=== PATIENT | female | born 1930 | race Caucasian/White ===

== ENCOUNTER 2017-01-28 23:13 | Emergency (ER) | payer MEDICARE, OTHER ==
[~2017-01-28 23:13] MED LIST: ALLEGRA ALLERG180 MG PO; ASPIRIN CHEWABL81 MG PO; CALCIUM600 MG PO; CEFDINIR300 MG PO; COZAAR 25MG TAB25 MG PO; COZAAR50 MG PO; LIPITOR10 MG PO; MEGA BIOTIN10000 MCG PO; MULTIPLE VITAM1 EAC1 PO; NEURONTIN100 MG PO; OSTEO BI-FLEX1 EAC1 PO; PRILOSEC10 MG PO; SINGULAIR10 MG PO; SUPER B COMPLE150 MG PO; SYNTHROID50 MCG PO; TOLTERODINE TART1 MG PO; WELLBUTRIN100 MG PO; ZITHROMAX250 MG PO
[2017-01-29 00:33] LABS: BASOPHIL 0.8 % (0-2); EOSINOPHIL 1.4 % (0-7); HCT 29.2 % (37.0-47.0); HGB 9.8 g/dl (12.5-16.0); LYMPHOCYTE 23.4 % (15-48); MCH 30.6 pg (25.0-31.0); MCHC 33.6 g/dL (32.0-36.0); MCV 91.3 fL (78.0-100.0); MONOCYTE 11.6 % (0-12); MPV 9.4 fL (6.0-9.5); NEUTROPHIL 62.8 % (41-80); PLT 197 K/uL (150-400); RDW 14.9 % (11.5-14.0); WBC 6.5 K/uL (4.0-10.5)
[2017-01-29 00:43] LABS: INR 0.96 (0.9-1.2); PROTHROMBIN TIME 12.4 SECONDS (11.7-14.0); PTT 24.9 SECONDS (23.2-31.4)
[2017-01-29 01:01] LABS: ALBUMIN 3.7 g/dL (3.4-4.8); BILIRUBIN - TOTAL 0.3 mg/dL (0.1-1.0); CREATININE 1.1 mg/dL (0.5-1.0); POTASSIUM 3.9 mmol/L (3.5-5.1); TOTAL PROTEIN 5.7 g/dL (6.4-8.3)
[2017-01-29 02:32] LABS: BILIRUBIN NEGATIVE (NEGATIVE); BLOOD NEGATIVE Ery/uL (NEGATIVE); CLARITY CLEAR (CLEAR); COLOR YELLOW (YELLOW); GLUCOSE (U) NORMAL (NORMAL); KETONE (U) NEGATIVE (NEGATIVE); LEUKOCYTES 1+ Leu/uL (NEGATIVE); NITRITE NEGATIVE (NEGATIVE); PROTEIN NEGATIVE (NEGATIVE); SPECIFIC GRAVITY <=1.005 (1.001-1.030); UROBILINOGEN 0.2 mg/dL (0.2-1.0)
[2017-01-29 02:39] LABS: BACTERIA TRACE
== END 2017-01-29 03:09 | disposition home or self-care (01) ==
LOC: FER 23:13
PROVIDERS: Emergency Medicine Emergency Medical Services
DX: S82.301A Unspecified fracture of lower end of right tibia, initial encounter for closed fracture (principal); R26.2 Difficulty in walking, not elsewhere classified; R82.90 Unspecified abnormal findings in urine; I10 Essential (primary) hypertension; E03.9 Hypothyroidism, unspecified; E78.5 Hyperlipidemia, unspecified; Z88.2 Allergy status to sulfonamides; Z88.5 Allergy status to narcotic agent; Z88.6 Allergy status to analgesic agent; W19.XXXA Unspecified fall, initial encounter; Y92.009 Unspecified place in unspecified non-institutional (private) residence as the place of occurrence of the external cause
CPT/HCPCS: 36415; 71010; 72170; 73502; 73552; 73564; 73700; 80053; 81001; 85025; 85610; 85730; 86403; 87076; 87077; 87088; 93005; 96372; J1170; J1885; J2405

== ENCOUNTER 2017-02-03 13:11 | Emergency (ER) | payer MEDICARE, OTHER ==
[2017-02-03 17:50] LABS: BASOPHIL 0.7 % (0-2); EOSINOPHIL 2.2 % (0-7); HCT 32.6 % (37.0-47.0); HGB 10.9 g/dl (12.5-16.0); LYMPHOCYTE 22.7 % (15-48); MCH 30.5 pg (25.0-31.0); MCHC 33.4 g/dL (32.0-36.0); MCV 91.3 fL (78.0-100.0); MONOCYTE 11.2 % (0-12); MPV 9.4 fL (6.0-9.5); NEUTROPHIL 63.2 % (41-80); PLT 252 K/uL (150-400); RBC 3.57 M/uL (4.20-5.40); RDW 14.7 % (11.5-14.0); WBC 7.6 K/uL (4.0-10.5)
[2017-02-03 18:01] LABS: POTASSIUM 3.8 mmol/L (3.5-5.1)
== END 2017-02-03 19:00 | disposition home or self-care (01) ==
LOC: FER 13:11
PROVIDERS: Internal Medicine
DX: M25.561 Pain in right knee (principal); Z96.651 Presence of right artificial knee joint
CPT/HCPCS: 36415; 73564; 80048; 85025; 96372; J1170

== ENCOUNTER 2017-04-17 13:27 | Emergency (ER) | payer MEDICARE, OTHER ==
[2017-04-17 15:20] LABS: BASOPHIL 0.6 % (0-2); EOSINOPHIL 2.7 % (0-7); HCT 33.1 % (37.0-47.0); HGB 11.3 g/dl (12.5-16.0); LYMPHOCYTE 23.2 % (15-48); MCH 30.4 pg (25.0-31.0); MCHC 34.1 g/dL (32.0-36.0); MONOCYTE 8.6 % (0-12); NEUTROPHIL 64.9 % (41-80); PLT 284 K/uL (150-400); RBC 3.72 M/uL (4.20-5.40); RDW 13.7 % (11.5-14.0); WBC 8.3 K/uL (4.0-10.5)
[2017-04-17 15:21] LABS: BILIRUBIN NEGATIVE (NEGATIVE); BLOOD NEGATIVE Ery/uL (NEGATIVE); CLARITY CLEAR (CLEAR); COLOR YELLOW (YELLOW); GLUCOSE (U) NORMAL (NORMAL); KETONE (U) TRACE mg/dL (NEGATIVE); LEUKOCYTES 1+ Leu/uL (NEGATIVE); NITRITE NEGATIVE (NEGATIVE); PROTEIN NEGATIVE (NEGATIVE); UROBILINOGEN 0.2 mg/dL (0.2-1.0); pH 7.5 (5.0-9.0)
[2017-04-17 15:29] LABS: BACTERIA TRACE
[2017-04-17 15:35] LABS: ALBUMIN 3.8 g/dL (3.4-4.8); BILIRUBIN - TOTAL 0.4 mg/dL (0.1-1.0); GLOBULIN (CALCULATION) 2.5 g/dL (2.2-4.2); TOTAL PROTEIN 6.3 g/dL (6.4-8.3)
== END 2017-04-17 18:45 | disposition home or self-care (01) ==
LOC: FER 13:27
PROVIDERS: Emergency Medicine
DX: R10.9 Unspecified abdominal pain (principal); I10 Essential (primary) hypertension; K21.9 Gastro-esophageal reflux disease without esophagitis; Z79.899 Other long term (current) drug therapy
CPT/HCPCS: 36415; 70450; 80053; 81001; 82150; 83690; 85025

== ENCOUNTER 2017-05-13 18:56 | Inpatient (IN) | payer MEDICARE, OTHER ==
[~2017-05-13] VITALS: Ht 163 cm; Wt 79.4 kg
[2017-05-13 19:28] LABS: BASOPHIL 0.3 % (0-2); HCT 32.1 % (37.0-47.0); HGB 10.9 g/dl (12.5-16.0); LYMPHOCYTE 26.8 % (15-48); MCH 29.6 pg (25.0-31.0); MCV 87.2 fL (78.0-100.0); MONOCYTE 10.2 % (0-12); MPV 9.5 fL (6.0-9.5); NEUTROPHIL 60.7 % (41-80); PLT 282 K/uL (150-400); RBC 3.68 M/uL (4.20-5.40); RDW 13.4 % (11.5-14.0)
[2017-05-13 19:33] LABS: INR 1.02 (0.9-1.2); PTT 30.3 SECONDS (23.2-31.4)
[2017-05-13 19:36] LABS: ALBUMIN 3.9 g/dL (3.4-4.8); BILIRUBIN - TOTAL 0.2 mg/dL (0.1-1.0); GLOBULIN (CALCULATION) 1.8 g/dL (2.2-4.2); POTASSIUM 4.1 mmol/L (3.5-5.1); TOTAL PROTEIN 5.7 g/dL (6.4-8.3)
[2017-05-13 20:19] LABS: BILIRUBIN NEGATIVE (NEGATIVE); BLOOD NEGATIVE Ery/uL (NEGATIVE); CLARITY CLEAR (CLEAR); COLOR YELLOW (YELLOW); GLUCOSE (U) NORMAL (NORMAL); KETONE (U) NEGATIVE (NEGATIVE); LEUKOCYTES NEGATIVE Leu/uL (NEGATIVE); NITRITE NEGATIVE (NEGATIVE); PROTEIN NEGATIVE (NEGATIVE); UROBILINOGEN 0.2 mg/dL (0.2-1.0)
[2017-05-14 01:55] LABS: TSH (THYROID STIM HORMONE) 2.7 uIU/mL (0.270-4.200)
[2017-05-14 02:07] LABS: FOLIC ACID (SERUM) > 20.0 ng/mL (5.6-45.8)
[2017-05-14 07:24] LABS: BASOPHIL 0.2 % (0-2); EOSINOPHIL 2.6 % (0-7); HCT 31.9 % (37.0-47.0); HGB 10.7 g/dl (12.5-16.0); LYMPHOCYTE 13.7 % (15-48); MCH 29.4 pg (25.0-31.0); MCHC 33.5 g/dL (32.0-36.0); MCV 87.6 fL (78.0-100.0); MONOCYTE 8.1 % (0-12); MPV 9.2 fL (6.0-9.5); NEUTROPHIL 75.4 % (41-80); PLT 237 K/uL (150-400); RBC 3.64 M/uL (4.20-5.40); RDW 13.5 % (11.5-14.0); WBC 9.9 K/uL (4.0-10.5)
[2017-05-14 07:47] LABS: CREATININE 1.1 mg/dL (0.5-1.0); POTASSIUM 4.6 mmol/L (3.5-5.1)
[2017-05-15 04:04] LABS: HCT 26.9 % (37.0-47.0); HGB 8.9 g/dl (12.5-16.0); MCH 29.9 pg (25.0-31.0); MCHC 33.1 g/dL (32.0-36.0); MCV 90.3 fL (78.0-100.0); PLT 170 K/uL (150-400); RBC 2.98 M/uL (4.20-5.40); WBC 7.8 K/uL (4.0-10.5)
[2017-05-15 04:12] LABS: POTASSIUM 4.5 mmol/L (3.5-5.1)
[2017-05-16 06:27] LABS: BASOPHIL 0.3 % (0-2); EOSINOPHIL 9.8 % (0-7); HCT 29.7 % (37.0-47.0); LYMPHOCYTE 15.2 % (15-48); MCH 29.7 pg (25.0-31.0); MCHC 33.7 g/dL (32.0-36.0); MCV 88.1 fL (78.0-100.0); MONOCYTE 13.4 % (0-12); MPV 9.6 fL (6.0-9.5); NEUTROPHIL 61.3 % (41-80); PLT 168 K/uL (150-400); RBC 3.37 M/uL (4.20-5.40); RDW 13.8 % (11.5-14.0); WBC 8.9 K/uL (4.0-10.5)
[2017-05-16 07:24] LABS: CREATININE 0.9 mg/dL (0.5-1.0); POTASSIUM 4.3 mmol/L (3.5-5.1)
[2017-05-17 05:15] LABS: BASOPHIL 0.6 % (0-2); EOSINOPHIL 8.2 % (0-7); HCT 22.4 % (37.0-47.0); HGB 7.2 g/dl (12.5-16.0); MCHC 32.1 g/dL (32.0-36.0); MCV 90.3 fL (78.0-100.0); MPV 10.3 fL (6.0-9.5); NEUTROPHIL 68.2 % (41-80); PLT 160 K/uL (150-400); RBC 2.48 M/uL (4.20-5.40); RDW 13.8 % (11.5-14.0); WBC 7.1 K/uL (4.0-10.5)
[2017-05-17 05:34] LABS: CREATININE 0.9 mg/dL (0.5-1.0); MAGNESIUM 1.61 mg/dL (1.40-2.10); POTASSIUM 4.8 mmol/L (3.5-5.1)
[2017-05-17 09:41] LABS: BASOPHIL NO PRINT 0.4 % (0-2); EOSINOPHIL NO PRINT 7.9 % (0-7); HCT 24.8 % (37.0-47.0); HGB 8.1 g/dL (12.5-16.0); LYMPHOCYTE NO PRINT 8.4 % (15-48); MCH NO PRINT 29.3 pg (25.0-31.0); MCHC NO PRINT 32.7 g/dL (32.0-36.0); MCV NO PRINT 89.9 fL (78.0-100.0); MONOCYTE NO PRINT 10.2 % (0-12); MPV NO PRINT 9.4 fL (6.0-9.5); NEUTROPHIL NO PRINT 73.1 % (41-80); PLT NO PRINT 181 K/uL (150-400); RBC NO PRINT 2.76 M/uL (4.20-5.40); RDW NO PRINT 13.8 % (11.5-14.0); WBC NO PRINT 8.2 K/uL (4.0-10.5)
[2017-05-18 04:17] LABS: HGB 8.2 g/dl (12.5-16.0); MCH 29.4 pg (25.0-31.0); MCHC 32.8 g/dL (32.0-36.0); MCV 89.6 fL (78.0-100.0); MPV 9.7 fL (6.0-9.5); RBC 2.79 M/uL (4.20-5.40); RDW 13.8 % (11.5-14.0); WBC 9.5 K/uL (4.0-10.5)
[2017-05-18 04:36] LABS: ALBUMIN 2.6 g/dL (3.4-4.8); BILIRUBIN - TOTAL 0.3 mg/dL (0.1-1.0); CREATININE 0.9 mg/dL (0.5-1.0); GLOBULIN (CALCULATION) 2.1 g/dL (2.2-4.2); POTASSIUM 4.8 mmol/L (3.5-5.1); TOTAL PROTEIN 4.7 g/dL (6.4-8.3)
--- NOTE | 2017-05-18 11:45 | NUR ---
REPORT GIVEN TO ALINA ROSALES. PT TRANSFERRED TO [facility] VIA BED;TRANSFERRED FROM BED TO BED W/MAX ASSIST. PT TOLERATED WELL.
== END 2017-05-18 17:05 | DRG 470 ==
LOC: FER 18:56 → FTCU 20:22 → FMS 20:22
PROVIDERS: Emergency Medicine; Internal Medicine; Legal Medicine; ADMIT Internal Medicine
PROC: 0SRR0JA Replacement of Right Hip Joint, Femoral Surface with Synthetic Substitute, Uncemented, Open Approach (ICD-10-PCS; principal; 2017-05-14)
PROC: 30233N1 Transfusion of Nonautologous Red Blood Cells into Peripheral Vein, Percutaneous Approach (ICD-10-PCS; 2017-05-16)
DX: S72.011A Unspecified intracapsular fracture of right femur, initial encounter for closed fracture (principal); I48.0 Paroxysmal atrial fibrillation; D63.8 Anemia in other chronic diseases classified elsewhere; I10 Essential (primary) hypertension; D62 Acute posthemorrhagic anemia; W19.XXXA Unspecified fall, initial encounter; Y93.89 Activity, other specified; Y92.199 Unspecified place in other specified residential institution as the place of occurrence of the external cause; I25.10 Atherosclerotic heart disease of native coronary artery without angina pectoris; E78.5 Hyperlipidemia, unspecified; K21.9 Gastro-esophageal reflux disease without esophagitis; E03.9 Hypothyroidism, unspecified; M19.90 Unspecified osteoarthritis, unspecified site; M85.861 Other specified disorders of bone density and structure, right lower leg; G47.33 Obstructive sleep apnea (adult) (pediatric); F41.9 Anxiety disorder, unspecified; F32.9 Major depressive disorder, single episode, unspecified; R73.9 Hyperglycemia, unspecified; D50.9 Iron deficiency anemia, unspecified; Z85.828 Personal history of other malignant neoplasm of skin; Z88.5 Allergy status to narcotic agent; Z88.2 Allergy status to sulfonamides; Z79.82 Long term (current) use of aspirin; Z79.899 Other long term (current) drug therapy
CPT/HCPCS: 36415; 36430; 71010; 73501; 73502; 73700; 80048; 80053; 81003; 82607; 82728; 82746; 82962; 83036; 83540; 83735; 84443; 84484; 85014; 85018; 85025; 85610; 85730; 86850; 86900; 86901; 86922; 88305; 88311; 93005; 93880; 94010; 94667; 97162; 97167; 97530; 97530-GP; 97535; C1776; J0131; J0697; J1170; J1885; J2405; J2704; J2795; J2916; J3010; J3360; P9016